=== PATIENT | female | born 1995 | race Caucasian/White ===

== ENCOUNTER 2017-01-03 23:47 | Emergency (ER) | payer OTHER | END 2017-01-04 00:30 | disposition home or self-care (01) | LOC: D.ER 23:47 | DX: L02.31 Cutaneous abscess of buttock (principal) ==

== ENCOUNTER 2018-04-28 14:06 | Observation (INO) | payer OTHER ==
[~2018-04-28] VITALS: Ht 170.2 cm; Wt 68.2 kg
[2018-04-28 15:27] LABS: BASOPHILS 0.4 % (0-2); EOSINOPHILS 2.4 % (0-7); HEMATOCRIT 37.8 % (36.0-48.0); HEMOGLOBIN 12.4 g/dL (12-16); IMMATURE GRANULOCYTES 0.2 % (0-5); LYMPHOCYTES 19.3 % (15-50); MCH 29.1 pg (26.0-34.0); MCHC 32.8 g/dL (31.0-37.0); MCV 88.7 fL (80.0-100.0); MEAN PLATELET VOLUME 10.8 fL (7.4-10.4); MONOCYTES 10.2 % (2-11); NEUTROPHILS 67.5 % (40-80); PLATELET COUNT 261 10x3/uL (130-400); RBC 4.26 10x6/uL (4.00-5.40); RDW 12.5 % (11.5-14.5); WBC 8.2 10x3/uL (4.8-10.8)
[2018-04-28 15:47] LABS: ALBUMIN 3.9 g/dL (3.4-5.0); ALKALINE PHOSPHATASE 57 U/L (46-116); ALT (SGPT) 39 U/L (10-68); BILIRUBIN - TOTAL 0.27 mg/dL (0.2-1.3); CALC OSMOLALITY 273 mosm/kg (275-300); CALCIUM 8.8 mg/dL (8.5-10.1); CHLORIDE - SERUM 103 mmol/L (98-107); CREATININE - SERUM 0.7 mg/dL (0.6-1.3); GLUCOSE 89 mg/dL (74-106); POTASSIUM - SERUM 3.9 mmol/L (3.5-5.1); PROTEIN - SERUM 7.8 g/dL (6.4-8.2); SODIUM 138 mmol/L (136-145); UREA NITROGEN 11 mg/dL (7-18); eGFR NON AFRICAN AMERICAN > 90 mL/min (90-120)
[2018-04-28 15:51] LABS: AMYLASE - SERUM 39 U/L (25-115); LIPASE 102 U/L (73-393); TROPONIN-I < 0.017 ng/mL (0.000-0.060)
[2018-04-28 16:00] LABS: HCG SERUM NEGATIVE (NEGATIVE)
[2018-04-28 16:01] LABS: APPEARANCE CLEAR (CLEAR); BILIRUBIN NEGATIVE (NEGATIVE); COLOR YELLOW (YELLOW); GLUCOSE NEGATIVE (NEGATIVE); KETONE NEGATIVE (NEGATIVE); NITRITE NEGATIVE (NEGATIVE); PROTEIN NEGATIVE (NEGATIVE); UROBILINOGEN NORMAL (NORMAL)
[2018-04-28 16:07] LABS: HCG URINE NEGATIVE (NEGATIVE)
[2018-04-28 17:15] VITALS: BP 112/75
[2018-04-28 18:26] VITALS: BP 115/72
[2018-04-29] VITALS (7 sets, daily range): BP systolic 103–118; BP diastolic 57–73; Ht 170.2 cm; Wt 68.2 kg
[2018-04-29] MEDS ORDERED: HYDROCODON-ACE1 EAC7 PO (15:21)
--- NOTE | 2018-04-30 09:45 | MORECARE ---
CASE MANAGEMENT DISCHARGE SUMMARY PATIENT: DERRICK LOPEZ UNIT: [id number] ADM DATE: 04/28/18 AGE: 22 : 89 SEX: F ROOM/BED: D.2230 AUTHOR: EMILY SALEH PHYSICIAN: REFERRING PHYSICIAN: LOGAN GREGG MD DATE OF SERVICE: 04/30/18 Discharge Plan Patient Name: DERRICK LOPEZ Facility: [facility]:[place] : 1995 Planned Disposition: Anticipated Discharge Date: Discharge Date: 04/29/2018 Expected LOS: 0 Initial Reviewer: [email or web address] Initial Review Date: 04/30/2018 Generated: 04/30/18 10:44 am Patient Name: DERRICK LOPEZ Page [id number] at 0945 All edits/amendments must be made on the electronic document DICTATION DATE: 04/30/1844 SHIFT FOREMAN: JAVIER 04/30/1844 RPT#: [id number] DC DATE:04/29/18 STATUS: DIS IN [facility] [address] [facility] [place] [address] END OF REPORT
== END 2018-04-29 22:00 | disposition home or self-care (01) ==
LOC: D.ER 14:06 → OBSVTIME 18:55 → D.EDHOLD 18:55 → D.MS 18:55
PROVIDERS: Family Medicine; ADMIT Surgery
DX: K35.30 Acute appendicitis with localized peritonitis, without perforation or gangrene (principal)

== ENCOUNTER 2020-01-10 15:26 | Emergency (ER) | payer OTHER ==
[~2020-01-10] VITALS: Ht 170.2 cm; Wt 77.3 kg
[~2020-01-10 15:26] MED LIST: HYDROCODON-ACE1 EAC7 PO
[2020-01-10 16:20] VITALS: Ht 170.2 cm; Wt 77.3 kg
[2020-01-10] MEDS ORDERED: METHOCARBAMOL500 MG PO (17:50)
[2020-01-10 17:58] VITALS: BP 119/69
== END 2020-01-10 18:01 | disposition home or self-care (01) ==
LOC: D.ER 15:26
DX: S16.1XXA Strain of muscle, fascia and tendon at neck level, initial encounter (principal); S39.012A Strain of muscle, fascia and tendon of lower back, initial encounter; X58.XXXA Exposure to other specified factors, initial encounter